=== PATIENT | female | born 1990 | race Caucasian/White ===

== ENCOUNTER 2025-08-24 23:40 | Emergency (ER) | payer MEDICAID ==
[~2025-08-24] VITALS: Ht 160 cm; Wt 85.0 kg
[2025-08-24 23:59] VITALS: O2SAT 98
[2025-08-25 01:08] VITALS: TEMP 36.9
[2025-08-25 01:56] LABS: CLARITY URINE CLEAR (CLEAR); COLOR URINE YELLOW (YELLOW); GLUCOSE URINE NEGATIVE (NEGATIVE); KETONES URINE 1+ (NEGATIVE); LEUKOCYTE ESTERASE URINE TRACE (NEGATIVE); NITRITE URINE NEGATIVE (NEGATIVE); OCCULT BLOOD URINE NEGATIVE (NEGATIVE); PH URINE 5.5 (4.5-8.0); PROTEIN URINE NEGATIVE (NEGATIVE); SPECIFIC GRAVITY URINE 1.021 (1.005-1.030); UROBILINOGEN URINE 0.2 E.U./dL (0.2-1.0)
[2025-08-25 02:10] LABS: BASOPHILS % 0.6 % (0.0-2.0); EOSINOPHILS % 1.1 % (0.0-5.0); HEMATOCRIT. 39.0 % (36.0-48.0); HEMOGLOBIN. 13.1 g/dL (12.0-16.0); LYMPHOCYTES % 17.8 % (20.0-50.0); MEAN PLATELET VOLUME 7.0 fl (7.4-10.4); MONOCYTES % 6.3 % (2.0-8.0); NEUTROPHILS % 74.2 % (40.0-76.0); PLATELET 365 x1000/uL (130-400); RED BLOOD CELL COUNT 4.69 mill/uL (4.2-5.4); RED CELL DISTRIBUTION WIDTH 14.0 % (11.6-14.6)
[2025-08-25 02:18] LABS: CREATININE 0.6 mg/dL (0.6-1.0)
[2025-08-25 02:19] LABS: PROTEIN TOTAL 7.7 g/dL (6.0-8.3); UREA NITROGEN BLOOD 11 mg/dL (9-23)
[2025-08-25 02:20] LABS: ASPARTATE AMINOTRANSFERASE 16 IU/L (<34)
[2025-08-25 02:44] LABS: BILIRUBIN DIRECT 0.1 mg/dL (<=3.0); BILIRUBIN TOTAL 0.5 mg/dL (0.1-1.0)
[2025-08-25 02:46] LABS: HCG SCREEN POSITIVE
[2025-08-25] MEDS: SODIUM CHLORIDE 0.9% 1,000 ML IV ONE (02:47)
[2025-08-25] MEDS: ACETAMINOPHEN 500MG TABLET PO ONE (02:47)
[2025-08-25 03:25] LABS: BACTERIA URINE NONE SEEN; RBC URINE NONE SEEN /hpf (0-2); SQUAMOUS EPITHELIAL CELL URINE 2+ /lpf (RARE/1+); WBC URINE NONE SEEN /hpf (0-2)
[2025-08-25 03:34] VITALS: BP 100/62; PULSE 84; RESP 13; O2SAT 100
== END 2025-08-25 03:38 | disposition home or self-care (01) ==
LOC: ER 23:40
DX: O26.891 Other specified pregnancy related conditions, first trimester (principal); R10.20 Pelvic and perineal pain unspecified side; Z3A.01 Less than 8 weeks gestation of pregnancy
CPT/HCPCS: 99284; 96360; 76801; 80076; 80048; 81003; 84703; 84702; 85025; 86850; 86900; 86901; 36415; 76817; J7030